=== PATIENT | male | born 1960 | race Caucasian/White ===

== ENCOUNTER 2018-10-29 12:38 | Emergency (ER) | payer BC ==
[2018-10-29 12:53] VITALS: BP 145/87; PULSE 81; RESP 18; O2SAT 97
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
[2018-10-29 14:41] VITALS: TEMP 98
== END 2018-10-29 14:37 | disposition home or self-care (01) ==
LOC: ED 12:38
DX: S00.83XA Contusion of other part of head, initial encounter (principal); Y04.0XXA Assault by unarmed brawl or fight, initial encounter; R51 Headache